=== PATIENT | female | born 1965 | race Caucasian/White ===

== ENCOUNTER 2017-08-06 17:00 | Emergency (ER) | payer OTHER ==
--- NOTE | 2017-08-06 17:54 | Emergency Department Record ---
History of Present Illness - General Chief Complaint: Headache Migraine Stated Complaint: SWAIN Time Seen by Provider: 08/06/17 17:46 Mode of Arrival: Ambulatory - History of Present Illness Initial Comments: headache since jul 05 and hasn't used anything and vision is fuzzy and she gets migraines with her menstral cyles and she uses motrin 800 mg for that and this is different and she saw Dr. Bowens and he ordered a head CT but the authorization process was going to take [address] Bowens told her to go to the ED. Patient hasn't used any meds for three weeks for the headache just toughing it out . Blurry vision for 40 minutes and better now. BP was high at Dr. Bowens's office and she had blurry vision than with a BP of 210 over /[address] Champagne gave her a clonidine 0.1 mg and bp here 132/88 and the blurred vision went away. Headache is better now to. MD Complaint: Headache Onset/Timin -: Week(s) Onset Description: Gradual Location: Diffuse, Frontal, Temporal Severity: Moderate Severity scale (1-10): 9 Quality: Aching Consistency: Constant Improves With: Nothing Associated Symptoms: Confusion, Vision loss Treatments Prior to Arrival: Ibuprofen - Related Data Home Medications Medication Instructions Recorded Confirmed Last Taken Biotin 10,000 mcg PO DAILY 08/06/17 08/06/17 1 Day Ago ~08/05/17 Omeprazole 40 mg PO DAILY 08/06/17 08/06/17 1 Day Ago ~08/05/17 Previous Rx's Medication Instructions Recorded Amlodipine Besylate 5 mg PO DAILY #30 tab 08/06/17 Allergies Allergy/AdvReac Type Severity Reaction Status Date / Time codeine Allergy ITCHING Verified 08/06/17 17:08 Travel Screening - Travel/Exposure Within Last 30 Days Have you traveled within the last 30 days?: No - Travel/Exposure Within Last Year Have you traveled outside the [place] in the last year?: No - Additonal Travel Details Have you been exposed to anyone with a communicable illness?: No - Travel Symptoms Symptom Screening: None Review of Systems Reviewed: No additional complaints except as noted below Constitutional: Reports: As per HPI. Denies: Chills, Fever, Malaise, Night sweats, Weakness, Weight change Eyes: Reports: As per HPI. Denies: Eye discharge, Eye pain, Photophobia, Vision change ENT: Reports: As per HPI. Denies: Congestion, Dental pain, Ear pain, Epistaxis , Hearing loss, Throat pain Respiratory: Reports: As per HPI. Denies: Cough, Dyspnea, Hemoptysis, Stridor, Wheezes Cardiovascular: Reports: As per HPI. Denies: Arrhythmia, Chest pain, Dyspnea on exertion, Edema, Murmurs, Orthopnea, Palpitations, Paroxysmal nocturnal dyspnea, Rheumatic Fever, Syncope Endocrine: Reports: As per HPI. Denies: Fatigue, Heat or cold intolerance, Polydipsia, Polyuria Gastrointestinal: Reports: As per HPI. Denies: Abdominal pain, Constipation, Diarrhea, Hematemesis, Hematochezia, Melena, Nausea, Vomiting Genitourinary: Reports: As per HPI. Denies: Abnormal menses, Discharge, Dyspareunia, Dysuria, Frequency, Hematuria, Incontinence, Retention, Urgency Musculoskeletal: Reports: As per HPI. Denies: Arthralgia, Back pain, Gout, Joint swelling, Myalgia, Neck pain Skin: Reports: As per HPI. Denies: Bruising, Change in color, Change in hair/ nails, Lesions, Pruritus, Rash Neurological: Reports: As per HPI, Headache. Denies: Abnormal gait, Confusion, Numbness, Paresthesias, Seizure, Tingling, Tremors, Vertigo, Weakness Psychiatric: Reports: As per HPI. Denies: Anxiety, Auditory hallucinations, Depression, Homicidal thoughts, Suicidal thoughts, Visual hallucinations Hematological/Lymphatic: Reports: As per HPI. Denies: Anemia, Blood Clots, Easy bleeding, Easy bruising, Swollen glands Past Medical History - SOCIAL HISTORY Smoking Status: Never smoker Alcohol Use: Rare, Occasional Drug Use: None - RESPIRATORY Hx Respiratory Disorders: No - CARDIOVASCULAR Hx Cardio Disorders: Yes Hx Hypertension: Yes (w/ ) - NEURO Hx Neuro Disorders: Yes Hx Headaches: Yes (w/ cycle) - GI Hx GI Disorders: Yes Hx Reflux: Yes Hx Wt Loss/Wt Gain: Yes (up 25-30 lbs in 1 year) - Hx Genitourinary Disorders: No - ENDOCRINE Hx Endocrine Disorders: No - MUSCULOSKELETAL Hx Musculoskeletal Disorders: No - PSYCH Hx Psych Problems: No - HEMATOLOGY/ONCOLOGY Hx Hematology/Oncology Disorders: No Family Medical History Any Significant Family History?: Yes Family Hx Comment (NOT TO BE USED IN PLACE OF ITEMS BELOW): does not know anything about biological family Physical Exam - General General Appearance: Alert, Oriented x3, Cooperative, No acute distress - Head Head exam: Normal inspection - Eye Eye exam: Normal appearance, PERRL Pupils: Normal accommodation - ENT ENT exam: Normal exam, Mucous membranes moist, Normal external ear exam, Normal orophraynx, TM's normal bilaterally Ear exam: Normal external inspection. negative: External canal tenderness Nasal Exam: Normal inspection. negative: Discharge, Sinus tenderness Mouth exam: Normal external inspection, Tongue normal Teeth exam: Normal inspection. negative: Dental caries Throat exam: Normal inspection. negative: Tonsillar erythema, Tonsillar exudate - Neck Neck exam: Normal inspection, Full ROM. negative: Tenderness - Respiratory Respiratory exam: Normal lung sounds bilaterally. negative: Respiratory distress - Cardiovascular Cardiovascular Exam: Regular rate, Normal rhythm, Normal heart sounds - GI/Abdominal GI/Abdominal exam: Soft, Normal bowel sounds. negative: Tenderness - Rectal Rectal exam: Deferred - exam: Deferred - Extremities Extremities exam: Normal inspection, Full ROM, Normal capillary refill. negative: Tenderness - Back Back exam: Reports: Normal inspection, Full ROM. Denies: Muscle spasm, Rash noted, Tenderness - Neurological Neurological exam: Alert, Normal gait, Oriented X3, Reflexes normal - Psychiatric Psychiatric exam: Normal affect, Normal mood - Skin Skin exam: Dry, Intact, Normal color, Warm Course Vital Signs 08/06/17 17:01 Temperature 98.2 F Pulse Rate 63 Respiratory 18 Rate Blood Pressure 165/83 Pulse Ox 100 Medical Decision Making - Data Complexity MDM Data: Labs Ordered and/or Reviewed, X-Ray Ordered and/or Reviewed (CT nothing acute ,chronic lacumnar spots bilateral basal ganglia or perivacula space, spot in the frontal bone possible hemangioma) - Lab Data Result diagrams: 08/06/17 18:04 08/06/17 18:04 Disposition Clinical Impression: Headache Qualifiers: Headache type: unspecified Headache chronicity pattern: acute headache Intractability: not intractable Qualified Code(s): R51 - Headache Hypertension Qualifiers: Hypertension type: essential hypertension Qualified Code(s): I10 - Essential ( primary) hypertension Disposition: Home, Self-Care Condition: (1) Good Instructions: Acute Headache (ED) Additional Instructions: follow up with Dr. Bowens in 1-5 days naprosyn twice a day for headache amlodipine 5 mg once a day Prescriptions: Amlodipine Besylate 5 mg PO DAILY #30 tab Forms: Patient Portal Access Time of Disposition: 19:18 Quality - Quality Measures Quality Measures: N/A - Blood Pressure Screening Does Patient Have Any of the Following: No Blood Pressure Classification: Pre-Hypertensive BP Reading Systolic Measurement: 165 Diastolic Measurement: 83 Screening for High Blood Pressure: < Pre-Hypertensive BP, F/U Documented > [ [id number]] Pre-Hypertensive Follow-up Interventions: Referral to alternative/primary care provider.
[2017-08-06 18:15] LABS: BASO % 0.4 % (0-6); EOS % 1.9 % (0-6); GRAN % 41.8 % (47-80); HEMATOCRIT 40.9 % (35.0-47.0); HEMOGLOBIN 13.6 gm/dl (11.6-16.0); LYMPH % 47.9 % (16-45); MEAN CORPUSCULAR HEMOGLOBIN 28.9 pg (27-33); MEAN CORPUSCULAR HGB CONC 33.3 g/dl (32-36); MEAN PLATELET VOLUME 9.7 fl (7.4-10.4); PLATELET COUNT 308 K/uL (130-400); RED CELL DISTRIBUTION WIDTH 13.3 % (11.5-14.5); WHITE BLOOD COUNT W/O DIFF 5.1 K/uL (4.2-12.2)
[2017-08-06 18:27] LABS: BLOOD UREA NITROGEN 14 mg/dL (6-20); CREATININE 0.9 mg/dL (0.5-0.9); EST GLOMERULAR FILTRATION RATE > 60 mL/min; GLUCOSE,RANDOM 105 mg/dL (74-109)
--- NOTE | 2017-08-07 08:46 | CT SCAN REPORT ---
EXAM: EMERGENCY HEAD CT HISTORY: THROBBING FRONTAL HEADACHE, HIGH BLOOD PRESSURE. TECHNIQUE: Axial CT scan of the head was performed without IV contrast. Comparison: None. FINDINGS: No definite acute intracranial hemorrhage identified. No focal mass effect or midline shift apparent. There are single relatively symmetric low attenuation foci in the region of the lentiform nucleated basal ganglia bilaterally. These may represent chronic lacunar infarcts or possibly just represent prominent perivascular spaces. The visualized paranasal sinuses are clear. There is probably odilon bullosa formation in both middle turbinates partially seen on the lower images. There is an approximately 17 mm x 5 mm oval low attenuation focus in the right frontal bone. This may be a hemangioma although is nonspecific. It does not appear to destroy the overlying outer or inner table of the frontal bone and appears to be predominantly within the diploic space. Comparison with any prior head CT's would be useful particularly if there is a history of prior malignancy, follow-up total body bone scan might be useful. If the patient's neurologic symptoms persist, follow -up brain MRI would be suggested if not contraindicated. IMPRESSION: 1. NO DEFINITE ACUTE INTRACRANIAL HEMORRHAGE OR FOCAL MASS EFFECT EVIDENT. 2. RELATIVELY SYMMETRIC LOW ATTENUATION FOCI IN THE REGION OF THE BASAL GANGLIA MAY BE CHRONIC LACUNAR INFARCTS OR SIMPLY REPRESENT PROMINENT PERIVASCULAR SPACES. 3. PROBABLE ODILON BULLOSA FORMATION BOTH MIDDLE TURBINATES. 4. OVAL RADIOLUCENCY WITHIN THE DIPLOIC SPACE OF THE RIGHT FRONTAL BONE IS NONSPECIFIC ALTHOUGH MAY BE A HEMANGIOMA. IF CLINICALLY WARRANTED, FOLLOW-UP TOTAL BODY BONE SCAN COULD BE PERFORMED. JOB NUMBER: [id number] MTDD
== END 2017-08-06 19:32 | disposition home or self-care (01) ==
LOC: ER 17:00
DX: I10 Essential (primary) hypertension (principal); R51 Headache; H53.8 Other visual disturbances; R41.0 Disorientation, unspecified
CPT/HCPCS: 70450; 80048; 85025; 99283; 99284

== ENCOUNTER 2019-03-30 06:57 | Day surgery (SDC) | payer BC ==
[~2019-03-30 06:57] MED LIST: ACETAMINOPHEN 1,000 MG/100 ML BTL IVPB ONE
[2019-03-30] MEDS ORDERED: KETOROLAC 30 MG/ML VIAL IVP ONE (06:58)
[2019-03-30] MEDS ORDERED: SEVOFLURANE 250 ML INH ONE (06:58)
[2019-03-30] MEDS ORDERED: LIDOCAINE 2% MDV (20MG/ML) 20ML VIAL IV ONE (06:58)
[2019-03-30] MEDS ORDERED: ONDANSETRON HCL IV 4 MG/2 ML VIAL IVP ONE (06:58)
[2019-03-30] MEDS ORDERED: PROPOFOL 10 MG/ML VIAL IV ONE (06:58)
[2019-03-30] MEDS ORDERED: FENTANYL PF 100MCG/2ML VIAL IV ONE (06:58)
[2019-03-30] MEDS ORDERED: MIDAZOLAM HCL 2MG/2ML VIAL IV ONE (06:58)
[2019-03-30] MEDS ORDERED: RINGERS SOLUTION,LACTATED 1,000 ML IV ONE ×2 (08:00→10:06)
[2019-03-30] MEDS: RINGERS SOLUTION,LACTATED 1,000 ML IV ONE (10:06)
--- NOTE | 2019-03-30 16:20 | Operative Note ---
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 POSTOPERATIVE DIAGNOSIS: Gangrenous of the PIP joint of the left middle finger. OPERATION: Excision of ganglion PIP joint left middle finger using 3.5 loop magnification. DESCRIPTION OF PROCEDURE: This 53-year-old female was taken to the operating room and placed in the supine position on the operating room table. General anesthetic was administered. The left upper extremity was elevated. It was prepped with Hibiclens and draped in the usual sterile fashion. The arm was exsanguinated and the tourniquet inflated to 250 mmHg. Subsequently, an incision was made dorsally across the PIP joint over the dome of the ganglion of the left middle finger. Dissection was carried down through the skin and subcutaneous tissue. The skin was elevated and the dome of the ganglion cyst easily identified. It was bluntly and sharply exposed and the ganglion excised to the joint. The joint demonstrated, what little we could see of it demonstrated some degeneration of the articular cartilage on the proximal phalanx on the radial condyle. The wound was then irrigated and the joint closed with 4-0 Vicryl and the skin closed with 6-0 nylon suture. A tube gauze dressing was applied and the patient was taken to the recovery room in satisfactory condition. GROSS PATHOLOGY: This patient demonstrated a ganglion emanating from the joint which emanated from the radial side of the central slip, and the ganglion was removed. MICHEL
== END 2019-03-30 10:55 | disposition home or self-care (01) ==
LOC: SUR 06:57
PROVIDERS: ATTEND Orthopaedic Surgery
DX: M67.442 Ganglion, left hand (principal); I10 Essential (primary) hypertension; K21.9 Gastro-esophageal reflux disease without esophagitis
CPT/HCPCS: 81025; J1885; J2405; J7120

== ENCOUNTER 2019-10-15 17:16 | Emergency (ER) | payer BC ==
[2019-10-15] MEDS ORDERED: MAGNESIUM HYDROXIDE/AL HYDROX 30 ML, LIDOCAINE VISC 2% 15ML 15 ML PO ONE ×2 (17:29)
--- NOTE | 2019-10-15 17:31 | Emergency Department Record ---
History of Present Illness - General Chief Complaint: Chest Pain Stated Complaint: CHEST PAIN Time Seen by Provider: 10/15/19 17:21 Source: Patient Mode of Arrival: Ambulatory Limitations: No limitations - History of Present Illness Initial Comments: The patient is here due to a 4 day hx of CP. The patient states the pain is in the retrosternal area and feels like a bubble for the last 4 days. Today the pain became more sharp and is intermittently radiating to her L shoulder. She denies any SOB, JENNIFER, sweating or nausea with the discomfort. There is no hx of CP with exertion or SEVILLA or any change with eating. The patient has cardiac risk factors of HTN only but no smoking or hx of diabetes. She does not know about her family history. MD Complaint: Chest pain Onset/Timin -: Days(s) Pain Location: Substernal - Related Data Previous Rx's Medication Instructions Recorded Sucralfate [Carafate] 1 gm PO QID #28 tablet 10/15/19 Allergies Allergy/AdvReac Type Severity Reaction Status Date / Time codeine Allergy ITCHING Verified 08/06/17 17:08 Travel Screening - Travel/Exposure Within Last 30 Days Have you traveled within the last 30 days?: No Review of Systems Constitutional: Denies: Chills, Fever Eyes: Denies: Eye discharge ENT: Denies: Congestion Respiratory: Reports: Cough. Denies: Dyspnea, Hemoptysis Cardiovascular: Reports: Chest pain. Denies: Arrhythmia, Dyspnea on exertion, Palpitations Endocrine: Denies: Fatigue Gastrointestinal: Denies: Nausea Genitourinary: Denies: Dysuria Musculoskeletal: Denies: Arthralgia Past Medical History - SOCIAL HISTORY Smoking Status: Never smoker Alcohol Use: Occasional Drug Use: None - RESPIRATORY Hx Respiratory Disorders: Yes Hx Bronchitis: Yes Hx Pneumonia: Yes - CARDIOVASCULAR Hx Cardio Disorders: Yes Hx Hypertension: Yes - NEURO Hx Neuro Disorders: Yes Hx Headaches: Yes - GI Hx GI Disorders: Yes Hx Reflux: Yes (CONTROLLED WITH PRILOSEC) Hx Wt Loss/Wt Gain: Yes - Hx Genitourinary Disorders: No - ENDOCRINE Hx Endocrine Disorders: No - MUSCULOSKELETAL Hx Musculoskeletal Disorders: Yes Comment:: GANGLION LEFT MIDDLE FINGER - PSYCH Hx Psych Problems: No - HEMATOLOGY/ONCOLOGY Hx Hematology/Oncology Disorders: No Family Medical History Any Significant Family History?: No Family Hx Comment (NOT TO BE USED IN PLACE OF ITEMS BELOW): does not know anything about biological family Physical Exam - General General Appearance: Alert, Oriented x3, Cooperative, No acute distress - Head Head exam: Atraumatic, Normocephalic, Normal inspection - Eye Eye exam: Normal appearance, PERRL, EOMI - ENT Throat exam: Normal inspection. negative: Tonsillar erythema, Tonsillar exudate - Neck Neck exam: Normal inspection, Full ROM. negative: Tenderness - Respiratory Respiratory exam: Normal lung sounds bilaterally. negative: Respiratory distress - Cardiovascular Cardiovascular Exam: Regular rate, Normal rhythm, Normal heart sounds. negative: Diastolic murmur, Systolic murmur - GI/Abdominal GI/Abdominal exam: Soft, Normal bowel sounds. negative: Tenderness - Extremities Extremities exam: Normal inspection, Full ROM, Normal capillary refill, Other (radial pulses 2+ and equal bilaterally.). negative: Tenderness - Back Back exam: Reports: Normal inspection - Neurological Neurological exam: Alert, Normal gait, Oriented X3. negative: Abnormal gait, Altered, Motor sensory deficit Course Vital Signs 10/15/19 17:18 Temperature 97.7 F Pulse Rate 79 Respiratory 22 Rate Blood Pressure 147/78 Pulse Ox 98 - Reevaluation(s) Reevaluation #1: The patient is doing a lot better at this time. The pain is 80% improved with the GI cocktail. She is resting comfortably with no SOB or JENNIFER. 10/15/19 18:37 Reevaluation #2: The patient is doing a lot better now and her discomfort is 100% better with the GI meds. The pain was never exertional and not associated with SOB, JENNIFER, sweating or nausea. Clinically I doubt the cause of the pain is her heart. Additionally I do feel since her workup was neg including her EKG, CXR, Trop, and D-dimer I do feel she is safe for discharge and outpatient F/U. She does have a HEART SCORE of 2 so she clearly is in the low risk category. She is to F/U with GI for an EGD in the next 1-2 weeks. 10/15/19 18:57 Medical Decision Making - Data Complexity MDM Data: Labs Ordered and/or Reviewed, X-Ray Ordered and/or Reviewed, EKG Ordered and/or Reviewed - Lab Data Result diagrams: 10/15/19 17:20 10/15/19 17:20 - EKG Data -: EKG Interpreted by Me EKG: No Acute Changes, Normal EKG - Radiology Data Radiology results: Report reviewed (CXR: Neg. ) Disposition Disposition: Discharge Clinical Impression: GERD (gastroesophageal reflux disease) Qualifiers: Esophagitis presence: esophagitis presence not specified Qualified Code(s): K21.9 - Gastro-esophageal reflux disease without esophagitis Disposition: Home, Self-Care Condition: (2) Stable Instructions: Gastroesophageal Reflux Disease (ED) Additional Instructions: Please add the Carafate to your home medicines and eat a very bland diet with no alcohol. Please see your family doctor for recheck next week and please also see a GI doctor in the [facility] next week. Return to the ER for any worsening or new issues. Prescriptions: Sucralfate [Carafate] 1 gm PO QID #28 tablet Referrals: [facility] [Provider Group] Forms: Patient Portal Access Time of Disposition: 19:01 Quality - Quality Measures Quality Measures: N/A - Blood Pressure Screening View Details: Yes Does Patient Have Any of the Following: Active Dx of HTN Blood Pressure Classification: Hypertensive Reading Systolic Measurement: 147 Diastolic Measurement: 78 Screening for High Blood Pressure: Patient Exclusion, Hx of HTN [G9744]
[2019-10-15 17:44] LABS: ABSOLUTE NEUTROPHIL COUNT 3.06; BASO % 0.3 % (0-6); GRAN % 39.7 % (47-80); HEMATOCRIT 39.5 % (35.0-47.0); HEMOGLOBIN 12.8 gm/dl (11.6-16.0); LYMPH % 47.7 % (16-45); MEAN CORPUSCULAR HEMOGLOBIN 28.5 pg (27-33); MEAN CORPUSCULAR HGB CONC 32.4 g/dl (32-36); MEAN PLATELET VOLUME 9.4 fl (7.4-10.4); MONO % 10.3 % (0-9); PLATELET COUNT 353 K/uL (130-400); RED BLOOD COUNT 4.49 M/uL (3.80-5.40); RED CELL DISTRIBUTION WIDTH 13.2 % (11.5-14.5); WHITE BLOOD COUNT W/O DIFF 7.7 K/uL (4.2-12.2)
[2019-10-15 17:57] LABS: BLOOD UREA NITROGEN 17 mg/dL (6-20); CREATININE 1.1 mg/dL (0.5-0.9); EST GLOMERULAR FILTRATION RATE 55 mL/min; INR 0.9; PARTIAL THROMBOPLASTIN TIME 27.9 SECONDS (24.5-39.1); PROTHROMBIN TIME (PATIENT) 9.6 SECONDS (9.5-12.1)
[2019-10-15 17:58] LABS: TOTAL PROTEIN 8.1 g/dL (6.6-8.7)
[2019-10-15 18:00] LABS: GLUCOSE,RANDOM 106 mg/dL (74-109)
[2019-10-15] MEDS ORDERED: POTASSIUM CHLORIDE 20 MEQ TABLET PO ONE (18:01)
[2019-10-15 18:02] LABS: ALT/SGPT 20 U/L (<33)
[2019-10-15 18:03] LABS: ALB/GLOB RATIO 1.5 (1.1-1.8); ALBUMIN 4.9 g/dL (4.0-5.0); ALKALINE PHOSPHATASE 106 U/L (35-104); AST/SGOT 20 U/L (10.0-35.0)
[2019-10-15] MEDS ORDERED: SUCRALFATE 1 G/10 ML UD PO ONE (18:22)
--- NOTE | 2019-10-15 18:38 | RADIOLOGY REPORT ---
EXAMINATION: Two View Chest Radiographs EXAM DATE: 10/15/2019 6:17 PM TECHNIQUE: Frontal and lateral views INDICATION: CP with cough COMPARISON: None ENCOUNTER: Not applicable FINDINGS: The heart, mediastinum, and pulmonary vasculature are normal. No lung consolidation or pleural effu sions are present. IMPRESSION: Normal chest. Dictated by: Josh Dennis MD on 10/15/2019 6:36 PM. .
== END 2019-10-15 19:13 | disposition home or self-care (01) ==
LOC: ER 17:16
DX: K21.9 Gastro-esophageal reflux disease without esophagitis (principal); R07.2 Precordial pain; I10 Essential (primary) hypertension; R05 Cough
CPT/HCPCS: 71046; 80053; 84484; 85025; 85379; 85610; 85730; 93005; 93010; 99284